=== PATIENT | male | born 1995 | race Caucasian/White ===

== ENCOUNTER → 2017-05-19 | Outpatient (CLI) | payer OTHER ==
--- NOTE | 2017-05-25 10:07 | PULMONARY FUNCTION TEST ---
Spirometry is consistent with a mild obstructive pattern. Repeat study done following bronchodilator showed no significant change in function.
== END | disposition home or self-care (01) ==
LOC: C.RC 11:18
PROVIDERS: ATTEND Obstetrics & Gynecology
DX: R06.2 Wheezing (principal)